=== PATIENT | male | born 1975 | race Caucasian/White ===

== ENCOUNTER 2020-08-01 17:54 | Emergency (ER) | payer OTHER ==
[2020-08-01 20:07] LABS: BASOPHIL 1.2 % (0-2); EOSINOPHIL 4.6 % (0-5); HCT 44.6 % (42.0-52.0); HGB 14.9 g/dl (13.2-18.0); LYMPHOCYTE 27.9 % (15-48); MCHC 33.4 g/dL (32.0-36.0); MCV 92.9 fL (78.0-100.0); MONOCYTE 9.5 % (0-12); MPV 9.9 fL (6.0-9.5); NRBC 0; PLT 343 K/uL (150-400); RDW 12.7 % (11.5-14.0)
[2020-08-01 20:18] LABS: ALBUMIN 3.7 g/dL (3.4-5.0); BILIRUBIN - TOTAL 0.7 mg/dL (0.2-1.0); BUN/CREAT RATIO (CALC) 16.2 RATIO; CREATININE 0.99 mg/dL (0.67-1.17); GLOBULIN (CALCULATION) 3.5 g/dL; POTASSIUM 3.5 mmol/L (3.5-5.1); TOTAL PROTEIN 7.2 g/dL (6.4-8.2)
[2020-08-01 20:39] LABS: CORONAVIRUS 2019 SARS-COV-2 NEGATIVE (NEGATIVE); INFLUENZA A NAA NEGATIVE (NEGATIVE)
[2020-08-01 21:19] LABS: LACTIC ACID 2.5 mmol/L (0.4-1.9)
[2020-08-01] MEDS ORDERED: AZITHROMYCIN250 MG PO (21:50)
== END 2020-08-01 22:34 | disposition home or self-care (01) ==
LOC: FER 17:54
PROVIDERS: Nurse Practitioner Family
DX: J18.9 Pneumonia, unspecified organism (principal); R07.89 Other chest pain; J44.9 Chronic obstructive pulmonary disease, unspecified; Z20.822 Contact with and (suspected) exposure to COVID-19
CPT/HCPCS: 36415; 71046; 80053; 83605; 84484; 85025; 87040; 93005; 94640; 94664; J0696; J1100; J1885; J2270; J2405; U0002